=== PATIENT | female | born 1955 ===

== ENCOUNTER → 2018-06-28 | Outpatient (CLI) | payer OTHER ==
[2018-06-30 15:09] LABS: HPV 16 Negative (Negative); HPV 18 Negative (Negative); HPV OTHER HR TYPES Negative (Negative)
== END ==
LOC: LAB 18:03 → LAB SHORT 18:03
PROVIDERS: Nurse Practitioner Women's Health
DX: Z12.72 Encounter for screening for malignant neoplasm of vagina (principal); Z91.89 Other specified personal risk factors, not elsewhere classified
CPT/HCPCS: 87624; G0123

== ENCOUNTER 2021-07-26 18:29 | Emergency (ER) | payer MEDICARE, OTHER ==
[~2021-07-26] VITALS: Ht 157.5 cm; Wt 63.5 kg
[2021-07-26] MEDS ORDERED: Ativan0.5 MG PO (20:44)
== END 2021-07-26 21:30 | disposition home or self-care (01) ==
LOC: ER 18:29
DX: F41.9 Anxiety disorder, unspecified (principal); Z88.8 Allergy status to other drugs, medicaments and biological substances
CPT/HCPCS: 99282

== ENCOUNTER 2023-09-11 16:40 | Emergency (ER) | payer MEDICARE, OTHER ==
[~2023-09-11] VITALS: Ht 157.5 cm; Wt 60.3 kg
[~2023-09-11 16:40] MED LIST: Ativan0.5 MG PO
[2023-09-11 19:45] VITALS: BP 140/73
== END 2023-09-11 20:03 | disposition home or self-care (01) ==
LOC: ER 16:40
DX: S42.291A Other displaced fracture of upper end of right humerus, initial encounter for closed fracture (principal); R07.81 Pleurodynia; W06.XXXA Fall from bed, initial encounter; Y04.8XXA Assault by other bodily force, initial encounter; Z88.0 Allergy status to penicillin; Z88.1 Allergy status to other antibiotic agents
CPT/HCPCS: 71101; 73060; 73090; 73620; 99283-25; A9270

== ENCOUNTER 2025-06-08 12:03 | Emergency (ER) | payer OTHER, MEDICARE ==
[~2025-06-08] VITALS: Ht 157.5 cm; Wt 64.0 kg
[2025-06-08] MEDS ORDERED: Morphine Sulfate 4 MG/1 ML Injection IV ONE (12:20)
[2025-06-08] MEDS ORDERED: Ondansetron HCl 2 MG / ML 2ML Vial IV ONE (12:20)
[2025-06-08] MEDS ORDERED: NS 1,000 ML IV SCH (12:20)
[2025-06-08 12:36] LABS: BASOPHILS ABSOLUTE AUTO 0.02 K/mm3 (0.00-0.23); BASOPHILS PERCENT AUTO 0 % (0-2); EOSINOPHILS ABSOLUTE AUTO 0.00 K/mm3 (0.00-0.68); EOSINOPHILS PERCENT AUTO 0 % (0-6); Hematocrit 39.9 % (33.0-51.0); Hemoglobin 13.2 g/dL (11.5-16.0); IMMATURE GRAN ABSOLUTE AUTO 0.04 K/mm3 (0.00-0.10); IMMATURE GRAN PERCENT AUTO 0 % (0-1); LYMPHOCYTES ABSOLUTE AUTO 1.03 K/mm3 (0.84-5.20); LYMPHOCYTES PERCENT AUTO 9 % (21-46); MONOCYTES ABSOLUTE AUTO 0.67 K/mm3 (0.16-1.47); MONOCYTES PERCENT AUTO 6 % (4-13); Mean Corpuscular HGB Conc 33.1 g/dL (31.5-36.5); Mean Corpuscular Volume 90 fL (80-100); NEUTROPHILS ABSOLUTE AUTO 9.82 K/mm3 (1.96-9.15); NEUTROPHILS PERCENT AUTO 85 % (41-73); NRBC ABSOLUTE 0.00 K/mm3 (0.00-0.02); NRBC Auto 0.0 /100 WBC (0.0-0.2); Platelet Count 281 K/mm3 (150-400); RDW Coefficient Variation 13.3 % (11.7-14.2); RDW Standard Deviation 43.9 fL (35.1-46.3)
[2025-06-08 12:53] LABS: Prothrombin Time Results 10.5 Sec (9.7-11.5)
[2025-06-08 12:58] LABS: Alanine Aminotransfer (ALT/SGP 21 U/L (12-78); Albumin, Blood 3.6 g/dL (3.4-5.0); Albumin/Globulin Ratio 1.1 (0.8-1.8); Anion Gap 9 mmol/L (3-11); Aspartate Aminotrans (AST/SGOT 25 U/L (12-37); Bilirubin, Total 0.5 mg/dL (0.1-1.0); Blood Urea Nitrogen 12 mg/dL (8-24); CO2, Blood 25 mmol/L (21-32); Calcium, Blood 8.5 mg/dL (8.5-10.1); Chloride, Blood 109 mmol/L (98-108); Creatinine, Blood 0.68 mg/dL (0.40-1.00); Ethanol (Alcohol), Blood, Med <3 mg/dL; Globulin, Blood 3.2 g/dL (2.2-4.0); Glucose, Blood 98 mg/dL (70-99); Potassium, Blood 3.5 mmol/L (3.5-5.5); Sodium, Blood 139 mmol/L (136-145); Total Protein, Blood 6.8 g/dL (6.4-8.2)
[2025-06-08 14:45] VITALS: BP 145/83
[2025-06-08] MEDS ORDERED: ONDA4ODT MM (15:21)
[2025-06-08] MEDS ORDERED: SENNA LAXATIVE8.6 MG PO (15:21)
[2025-06-08] MEDS ORDERED: POLY500 PO (15:21)
[2025-06-08] MEDS ORDERED: OXAYDO5 M1 PO (15:21)
[2025-06-08] MEDS ORDERED: Ketorolac Tromethamine 15mg Vial IV ONE (15:25)
[2025-06-08] MEDS ORDERED: OxyCODONE 10/Acetamin 325 TABLET PO ONE (15:25)
== END 2025-06-08 17:07 | disposition home or self-care (01) ==
LOC: ER 12:03
PROVIDERS: Emergency Medicine
DX: S82.141A Displaced bicondylar fracture of right tibia, initial encounter for closed fracture (principal); W01.0XXA Fall on same level from slipping, tripping and stumbling without subsequent striking against object, initial encounter
CPT/HCPCS: 70450; 72125; 72131; 73590; 73700; 80053; 80320; 83605; 83690; 85025; 85610; 86850; 86900; 86901; 93005; 93010; 96374-59; 96375-59; 99284-25; A9270; J1885; J2270; J2405; J7030

== ENCOUNTER 2025-06-12 06:25 | Day surgery (SDC) | payer MEDICARE, OTHER ==
[~2025-06-12] VITALS: Ht 157.5 cm; Wt 66.1 kg
[~2025-06-12 06:25] MED LIST changes: +ONDA4ODT MM; +OXAYDO5 M1 PO; +POLY500 PO; +SENNA LAXATIVE8.6 MG PO
[2025-06-12] MEDS ORDERED: CeFAZolin Sodium 2,000 MG VIAL ONE (06:29)
[2025-06-12] MEDS ORDERED: Bupivacaine 0.5% W/EPI 1:200000 SDV 30 ML Vial ONE (07:24)
[2025-06-12] MEDS ORDERED: Lidocaine 1%-Epineph 1:100000 20 ML MDV ONE (07:24)
[2025-06-12] MEDS ORDERED: Lidocaine 2%-Epineph 1:100000 20 ML MDV ONE (07:29)
[2025-06-12] MEDS ORDERED: FentaNYL Citrate 50 MCG/ML 2 ML Injection ONE (07:39)
[2025-06-12] MEDS ORDERED: Dexamethasone Sod Phos 10 MG/ML 1ML VIAL ONE (07:46)
[2025-06-12] MEDS ORDERED: HYDROmorphone HCl/Pf 1MG SYR ONE (08:33)
[2025-06-12] MEDS ORDERED: Ketorolac Tromethamine 30mg Vial ONE (10:32)
[2025-06-12] MEDS ORDERED: Ondansetron HCl 2 MG / ML 2ML Vial ONE (10:32)
--- NOTE | 2025-06-12 11:19 | NUR ---
06/12/25 [address] [place], [place] 1112: PATIENT ASSISTED INTO RECLINER WITH ASSIST OF [address]OS. PER DR BARRIOS PATIENT WILL WEAR POLAR PACK CONTINUOUSLY AND WILL NOT REMOVE BRACE. "SHE WILL HAVE TO WEAR SHORTS OR SOMETHING OVER THE BRACE."
[2025-06-12 11:31] VITALS: BP 127/72
== END 2025-06-12 12:14 | disposition home or self-care (01) ==
LOC: ORSCSDS 06:25
PROVIDERS: Orthopaedic Surgery
PROC: 0SQC4ZZ Repair Right Knee Joint, Percutaneous Endoscopic Approach (ICD-10-PCS; principal; 2025-06-12 07:30)
DX: S82.141A Displaced bicondylar fracture of right tibia, initial encounter for closed fracture (principal)
CPT/HCPCS: A6010; A9270; C1713; C1769; J0166; J0690; J1100; J1171; J1885; J2405; J2704; J3010; J7120